=== PATIENT | male | born 1965 | race Caucasian/White ===

== ENCOUNTER 2017-10-29 13:14 | Inpatient (IN) | payer OTHER ==
[~2017-10-29] VITALS: Ht 190.5 cm; Wt 107.2 kg
--- NOTE | ~2017-10-29 | H ---
[facility] [place] [address] HISTORY AND PHYSICAL Name: ALONZO ALEX Room #: 513-P ADM IN M.R.#: [id number] Admission: 10/29/17 Attend Phys: Bhaskar Rodarte MD Discharge: Date of : 69 Report #: [id number] THIS REPORT FOR: //name// CC: Bhaskar Rodarte [facility] unknown DATE OF SERVICE: 10/29/2017 HISTORY OF PRESENT ILLNESS: The patient is a 52-year-old male recently admitted to [facility] after a fall x2 at home. He lost his balance. Denies hitting head or loss of consciousness. While at [facility], he was diagnosed with acute respiratory failure, altered mental status, likely metabolic encephalopathy due to respiratory failure and other comorbid factors, along with central apnea. He has a history of stroke with premorbid left hemiparesis, but there was no evidence for any acute stroke on evaluation. He was initially treated with BiPAP due to the central apnea and acute respiratory failure; however, he is being weaned off that and is on room air. He has significant functional deficits with cognitive issues with a metabolic encephalopathy. He did have some episodes of some hallucinations per the , which have improved. He has significant functional deficits along with cognitive deficits and has been admitted for acute in-hospital inpatient rehabilitation. PAST MEDICAL HISTORY: Please see Marisabel Lucero's dictation, nurse practitioner. HABITS: Please see Marisabel Lucero's dictation, nurse practitioner. SOCIAL HISTORY: Please see Marisabel Lucero's dictation, nurse practitioner. ALLERGIES: Please see Marisabel Lucero's dictation, nurse practitioner. MEDICATIONS: See the full medication listing. This includes vitamins, herbals, and supplements. REVIEW OF SYSTEMS: He has numbness of both feet. He has blindness of the left eye. No chest pain, shortness of breath, abdominal discomfort. PHYSICAL EXAMINATION: GENERAL: The patient was seen later yesterday afternoon with present. NEUROLOGIC: He was pleasant, alert. There is a definite delay in processing. He does have difficulties with memory recall, he can follow basic orientation questions. He has the left eye blindness. HEAD, EYES, EARS, NOSE, AND THROAT: Otherwise appeared benign. CHEST: Sounded clear to auscultation. Some decreased in the bases. CARDIOVASCULAR: Regular rate and rhythm. ABDOMEN: Bowel sounds positive, nontender. [facility] [address] [address] HISTORY AND PHYSICAL Name: ALONZO ALEX Room #: 513-P [facility] IN .R.#: [id number] Admission: 10/29/17 Attend Phys: Bhaskar Rodarte MD Discharge: Date of : 69 Report #: [id number] GENITOURINARY AND RECTAL: Deferred. EXTREMITIES: He does have a blood blister right great toe without any current bleeding. Abrasion on right dorsal foot with the Mepilex dressing in place. No calf swelling. He has definite decreased sensation from the knees distal with decreased proprioception. Strength approximately a grade 4- to 3+ distally. He has bilateral foot drop with a grade 3 to 3+. There is no clonus. His mod assist for lower extremity dressing and mod assist for sit to stand, min assist to try to march short distance up to 10 steps. Premorbidly, he had been utilizing just a cane versus a walker. ASSESSMENT: 1. Metabolic encephalopathy. 2. 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 3. Acute respiratory failure. 4. Central apnea. 5. End-stage renal disease, on hemodialysis. 6. Type 2 diabetes mellitus. 7. Gastroparesis diabetic peripheral neuropathy premorbid. 8. Blood blister right foot with abrasion and history of traumatic brain injury with post-concussion syndrome. 9. Chronic anemia. PLAN: The patient is admitted for acute in-hospital inpatient rehabilitation. From a postadmission physician evaluation perspective, there are no relevant changes since the preadmission screening. Please see the above review of prior and current medical and functional conditions and comorbidities. Please see the patient's previous and current functional status. As far as risk of complications, the patient has the multiple medical comorbidities noted above. Initial plan of care involves the interdisciplinary acute inpatient rehabilitation program with goal of maximizing the patient's functional independence, so that he can hopefully return back to his prior living situation. Prognosis is reasonably good with estimated length of stay probably at least 7-14 days pending progress. Potential barriers would include his multiple medical comorbidities and decreased functional status. The patient meets diagnostic criteria for an acute in-hospital inpatient rehabilitation stay. He meets medical necessity criteria and the technical marketing consultant physicians will continue to follow along with them. He does have the tolerance for therapies and has appropriate discharge goals back to the home setting. <ELECTRONICALLY SIGNED> By: Bhaskar Rodarte MD 11/03/17 1736 [id number] [id number] Bhaskar Rodarte MD /[facility]
--- NOTE | ~2017-10-29 | PLAN ---
[facility] [place] [address] REHAB UNIT PLAN OF CARE Name: ALONZO ALEX Room #: 513-P ADM IN M.R.#: [id number] Admission: 10/29/17 Attend Phys: Bhaskar Rodarte MD Discharge: Date of : 69 Report #: [id number] THIS REPORT FOR: //name// CC: Bhaskar Rodarte [facility] unknown DATE OF SERVICE: 10/30/2017 OVERALL PLAN OF CARE PLAN: This is based on the pre-admission screen and post-admission physician evaluation as well as based on his current functions. He is noted to be unsteady at times when up. In speech therapy, he does have [id number] comprehensive deficits. Cognition is [id number]. 1. Estimated length of stay is 7-14 days. 2. Medical prognosis is reasonably good. 3. Anticipated interventions include the interdisciplinary acute inpatient rehabilitation program with PT, OT and speech. Rehabilitation nursing assisting regarding medication management, skin care prophylaxis, bowel and bladder issues, and nursing education. The multiple strategic sourcing consultant physicians are following as well as the rest of the interdisciplinary acute rehabilitation team. 4. Anticipated functional outcomes would be for the patient to become modified independent with transfers, mobility, and ADLs. It is also to improve with this his overall cognition. 5. Discharge destination would be back to the home setting with the . 6. Expected therapy by discipline includes PT and OT and speech 1 hour per day each five days a week throughout the duration of the acute inpatient rehabilitation stay. Therapy is continuing to work with him today and we will have a team conference on 11/02/2017, for further assessment regarding his rehabilitation progress. <ELECTRONICALLY SIGNED> By: Bhaskar Rodarte MD 11/03/17 1736 0915 [id number] Bhaskar Rodarte MD /PMT
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
--- NOTE | ~2017-10-29 | HC ---
[facility] [place] [address] CONSULTATION Name: ALONZO ALEX Room #: 513-P ADM IN M.R.#: [id number] Admission: 10/29/17 Attend Phys: Bhaskar Rodarte MD Discharge: Date of : 69 Report #: [id number] THIS REPORT FOR: //name// CC: Bhaskar LOPEZ unknown DATE OF SERVICE: 10/30/2017 REASON FOR CONSULTATION: End-stage renal disease. HISTORY OF PRESENT ILLNESS: Longstanding diabetic patient with retinopathy, neuropathy, end-stage renal disease, has been on dialysis for 5 years. He has developed progressive weakness and falls and apparently had unexplained respiratory arrest recently as well. He is admitted over here for rehabilitation and strengthening. PAST MEDICAL HISTORY: Diabetes with triopathy. He has had some foot surgeries for diabetic foot infection, arthroscopic knee surgery and he has got a left arm AV graft, which is also to be worked on. FAMILY HISTORY: Positive for diabetes. Negative for end-stage renal disease. SOCIAL HISTORY: No cigarettes or alcohol. . No children. REVIEW OF SYSTEMS: GENERAL: He has been feeling reasonably well. EYES: Blind in the left eye due to the retinopathy. He has had laser surgery on the right and it is okay. ENT: Hearing okay, swallows okay. No mouth ulcers. ENDOCRINE: Positive for the diabetes. RESPIRATORY: Breathing easily without pleuritic pain, hemoptysis or shortness of air. CARDIAC: No chest pain, angina, history of myocardial infarction or palpitations. GENITOURINARY: Making very little urine. No dysuria. GASTROINTESTINAL: Difficulty with digestion as well. As long as he takes his Reglan, he does okay. NEUROLOGIC: He has got little bit of neuropathy in the feet. No seizure or stroke. HOME MEDICATIONS: Include aspirin 81 mg daily, Lipitor 40 mg daily. He is on daily Diflucan. I am unclear as to why he is on insulin. He is on losartan 25 mg daily, metoclopramide 5 mg at before meals and at bedtime, metoprolol tartrate 25 mg at bedtime, Nephrocaps, Protonix 40 mg daily and Renvela 4 with meals. [facility] [address] [place] [address] CONSULTATION Name: ALONZO ALEX Room #: 513-P [facility] IN .R.#: [id number] Admission: 10/29/17 Attend Phys: Bhaskar Rodarte MD Discharge: Date of : 69 Report #: [id number] PHYSICAL EXAMINATION: GENERAL: This is a reasonably well-appearing gentleman, in no acute distress. SKIN: Unremarkable. SKELETAL: Well developed, well nourished, nonobese. HEENT: Extraocular movements are full. Decreased vision in left eye. Hearing intact. Mucous membranes moist. Tongue, buccal mucosa benign. NECK: Supple, no lymphadenopathy or carotid bruits. CHEST: Clear to auscultation. HEART: Regular. ABDOMEN: Soft and nontender without bruits, masses or organomegaly. EXTREMITIES: Peripheral pulses intact. NEUROLOGIC: Grossly intact. LABORATORY DATA: Shows his hemoglobin to be 10.9. Sodium 132, potassium 5, chloride 97, bicarbonate 29, creatinine 7.6. ASSESSMENT: 1. End-stage renal disease. Continue on 3 times weekly dialysis. He dialyzed yesterday. We will dialyze him again in 2 days and then try to get him over to Wednesday, , Wednesday schedule. 2. Diabetes mellitus with triopathy. 3. Severe debility and weakness. 4. Rehabilitation. By: [id number] Tato Burns MD /nt
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
[2017-10-29] MEDS ORDERED: ASPIR 8181 MG PO (15:15)
[2017-10-29] MEDS ORDERED: ATORVASTATIN CA40 MG PO (15:31)
[2017-10-29] MEDS ORDERED: BISACODYL SUPP10 MG RECTAL (15:32)
[2017-10-29] MEDS ORDERED: COLACE100 MG PO (15:33)
[2017-10-29] MEDS ORDERED: EPOGEN10000 UNIT IJ (15:35)
[2017-10-29] MEDS ORDERED: DIFLUCAN200 MG PO ×2 (15:38→15:39)
[2017-10-29] MEDS ORDERED: HUMULINR100 ×2 (15:40→15:42)
[2017-10-29] MEDS ORDERED: COZAAR 25 MG TA25 M1 PO (15:43)
[2017-10-29] MEDS ORDERED: REGLAN 10 MG TA10 MG PO ×2 (15:44→15:45)
[2017-10-29] MEDS ORDERED: LOPRESSOR50 PO (15:46)
[2017-10-29] MEDS ORDERED: LOPRESSOR25 PO (15:47)
[2017-10-29] MEDS ORDERED: NEPHROCAPS SOFT1 CAP PO (15:48)
[2017-10-29] MEDS ORDERED: PROTONIX40 M1 PO (15:48)
[2017-10-29] MEDS ORDERED: RENVELA800 MG PO (15:50)
[2017-10-29] MEDS ORDERED: DIFLUCAN100 MG PO ×2 (15:58→16:01)
[2017-10-29 16:00] VITALS: BP 104/61
[2017-10-29 20:13] VITALS: BP 127/69
[2017-10-29 23:31] LABS: HEMOGLOBIN 10.9 gm/dL (14.0-18.0); MCH 32.3 pg (26.0-34.0); MCHC 33.1 g/dL (28.0-37.0); MCV 97.4 fL (80.0-100.0); RBC 3.39 mil/uL (4.50-6.00); RDW 13.8 % (10.5-14.5); WBC 11.8 thou/uL (4.0-11.0)
[2017-10-29 23:43] LABS: ALBUMIN 2.7 g/dL (3.4-5.0); CALCIUM 8.6 mg/dL (8.5-10.1); CREATININE 7.6 mg/dL (0.7-1.3); PHOSPHORUS 3.5 mg/dL (2.5-4.9)
[2017-10-30 00:01] LABS: PROTIME 9.9 Seconds (9.3-11.4)
[2017-10-30 08:10] VITALS: BP 93/58
[2017-10-30 19:52] VITALS: BP 120/74
[2017-10-31 04:00] LABS: ALBUMIN 2.7 g/dL (3.4-5.0); CREATININE 10.6 mg/dL (0.7-1.3); PHOSPHORUS 4.5 mg/dL (2.5-4.9); POTASSIUM 5.2 mmol/L (3.5-5.1)
[2017-10-31 07:30] VITALS: BP 170/96
[2017-10-31 20:14] VITALS: BP 146/67
[2017-11-01 05:32] LABS: HEMATOCRIT 31.8 % (42.0-52.0); HEMOGLOBIN 10.5 gm/dL (14.0-18.0); MCH 32.3 pg (26.0-34.0); MCHC 33.1 g/dL (28.0-37.0); MCV 97.6 fL (80.0-100.0); RBC 3.26 mil/uL (4.50-6.00); RDW 13.8 % (10.5-14.5); WBC 13.6 thou/uL (4.0-11.0)
[2017-11-01 05:49] LABS: ALBUMIN 2.6 g/dL (3.4-5.0); CALCIUM 8.8 mg/dL (8.5-10.1); POTASSIUM 5.6 mmol/L (3.5-5.1); TOTAL BILIRUBIN 0.3 mg/dL (<0.1-1.0); TOTAL PROTEIN 6.9 g/dL (6.4-8.2)
[2017-11-01 07:40] VITALS: BP 145/79
[2017-11-01 20:20] VITALS: BP 126/74
[2017-11-02 05:12] LABS: GLYCOHEMOGLOBIN (HGB A1C) 5.8 % (4.8-5.6)
[2017-11-02 08:25] VITALS: BP 136/83
[2017-11-02 20:21] VITALS: BP 99/61
[2017-11-03 06:10] LABS: HEP B SURFACE Ab(ANTI-HBS Reactive (()); HEPATITIS B SURFACE AG Negative (Negative)
[2017-11-03 07:30] VITALS: BP 128/79
[2017-11-03 20:18] VITALS: BP 135/82
[2017-11-04 04:06] LABS: ABSOLUTE NEUTROPHILS 7.5 thou/uL (1.4-8.2); BASOPHILS 0.8 % (0.0-2.0); EOSINOPHILS 5.8 % (0.0-3.0); HEMOGLOBIN 11.7 gm/dL (14.0-18.0); LYMPHOCYTES 19.5 % (24.0-44.0); MCH 32.1 pg (26.0-34.0); MCHC 33.4 g/dL (28.0-37.0); MONOCYTES 7.1 % (1.0-8.0); PLATELET COUNT 268 thou/uL (150-400); POLYS 66.8 % (36.0-66.0); RBC 3.64 mil/uL (4.50-6.00); RDW 13.6 % (10.5-14.5); WBC 11.3 thou/uL (4.0-11.0)
[2017-11-04 04:17] LABS: CALCIUM 8.9 mg/dL (8.5-10.1); CREATININE 9.7 mg/dL (0.7-1.3); MAGNESIUM 3.4 mg/dL (1.8-2.4)
[2017-11-04 07:40] VITALS: BP 130/76
[2017-11-04 14:09] LABS: URINE BILIRUBIN NEGATIVE (Negative); URINE BLOOD 3+ (Negative); URINE CLARITY CLOUDY; URINE COLOR YELLOW; URINE GLUCOSE-RANDOM* 1+ (Negative); URINE KETONES NEGATIVE (Negative); URINE LEUKOCYTES-REFLEX 3+ (Negative); URINE NITRITE-REFLEX NEGATIVE (Negative); URINE PROTEIN (DIPSTICK) 2+ (Negative); URINE UROBILINOGEN 0.2 E.U./dl (0.2-1.0)
[2017-11-04 14:26] LABS: SQUAMOUS None Seen /LPF (0-3)
[2017-11-04 14:28] LABS: CASTS None Seen /LPF (None Seen); CRYSTALS None Seen /LPF (None Seen); URINE RBC >20 Many /HPF (0-2); URINE WBC-REFLEX >25 Many /HPF (0-5); WBC CLUMPS Few (None Seen)
[2017-11-04 20:21] VITALS: BP 118/63
[2017-11-05 08:00] VITALS: BP 106/64
[2017-11-05 19:54] VITALS: BP 119/74
[2017-11-06 07:30] VITALS: BP 122/84
[2017-11-06 19:32] VITALS: BP 111/69
[2017-11-07 07:30] VITALS: BP 145/83
[2017-11-07 20:27] VITALS: BP 134/83
[2017-11-08 07:24] VITALS: BP 134/83
[2017-11-08 07:40] VITALS: BP 107/54
[2017-11-08] MEDS ORDERED: MIRALAX17 GM PO (08:59)
[2017-11-08 09:18] VITALS: BP 134/83
[2017-11-08 15:59] VITALS: BP 134/83
== END 2017-11-08 11:42 | disposition home health service (06) | DRG 70 ==
PROVIDERS: Hospitalist; Internal Medicine Nephrology; Nurse Practitioner
PROC: 5A1D70Z Performance of Urinary Filtration, Intermittent, Less than 6 Hours Per Day (ICD-10-PCS; principal; 2017-11-01)
PROC: 5A1D70Z Performance of Urinary Filtration, Intermittent, Less than 6 Hours Per Day (ICD-10-PCS; 2017-11-02)
PROC: 5A1D70Z Performance of Urinary Filtration, Intermittent, Less than 6 Hours Per Day (ICD-10-PCS; 2017-11-04)
PROC: 5A1D70Z Performance of Urinary Filtration, Intermittent, Less than 6 Hours Per Day (ICD-10-PCS; 2017-11-06)
DX: G93.41 Metabolic encephalopathy (principal); N18.6 End stage renal disease; J96.00 Acute respiratory failure, unspecified whether with hypoxia or hypercapnia; I69.954 Hemiplegia and hemiparesis following unspecified cerebrovascular disease affecting left non-dominant side; I12.0 Hypertensive chronic kidney disease with stage 5 chronic kidney disease or end stage renal disease; B37.49 Other urogenital candidiasis; E87.1 Hypo-osmolality and hyponatremia; Z99.2 Dependence on renal dialysis; R53.81 Other malaise; E11.43 Type 2 diabetes mellitus with diabetic autonomic (poly)neuropathy; E11.22 Type 2 diabetes mellitus with diabetic chronic kidney disease; E11.42 Type 2 diabetes mellitus with diabetic polyneuropathy; K31.84 Gastroparesis; M21.372 Foot drop, left foot; M21.371 Foot drop, right foot; H54.40 Blindness, one eye, unspecified eye; E11.319 Type 2 diabetes mellitus with unspecified diabetic retinopathy without macular edema; E78.5 Hyperlipidemia, unspecified; D64.9 Anemia, unspecified; G47.31 Primary central sleep apnea; R41.9 Unspecified symptoms and signs involving cognitive functions and awareness; S90.821A Blister (nonthermal), right foot, initial encounter; X58.XXXA Exposure to other specified factors, initial encounter; S90.811A Abrasion, right foot, initial encounter; K59.00 Constipation, unspecified; E87.5 Hyperkalemia; Z87.820 Personal history of traumatic brain injury; Z83.3 Family history of diabetes mellitus; Z79.899 Other long term (current) drug therapy; Z79.82 Long term (current) use of aspirin; Z79.4 Long term (current) use of insulin; Y93.89 Activity, other specified; Y92.89 Other specified places as the place of occurrence of the external cause; Y99.8 Other external cause status
CPT/HCPCS: 10112; 32100